=== PATIENT | female | born 1995 | race Caucasian/White ===

== ENCOUNTER 2020-03-15 08:52 | Outpatient (CLI) | payer OTHER ==
[~2020-03-15] VITALS: Ht 157.5 cm; Wt 81.8 kg
--- NOTE | 2020-03-15 08:50 | NUR ---
G1 37.[address] Houston ambulatory to LR 4 for complaint of possible SROM. Reports having felt "a trickle" at 0130 and then again at 0530. Feels "wet" off and on but not filling a pad. Reports good movement and denies contractions or vaginal bleeding. Assisted into gown and placed on EFM. Difficulty tracing FHR, RN frequently adjusting EFM. Amnitest negative, SVE C/Th/H, vagina dry, BOWI and presenting part ballotable. Dr. Houston updated, see physician notification.
[~2020-03-15 08:52] MED LIST: NO HOME MEDICATIONS
[2020-03-15 09:14] VITALS: BP 129/75; PULSE 82; TEMP 98.6
[2020-03-15] MEDS ORDERED: NATURAL IRON65 MG (09:22)
[2020-03-15] MEDS ORDERED: PRENATAL (09:22)
[2020-03-15 09:30] VITALS: BP 119/74; PULSE 83; TEMP 98.6
--- NOTE | 2020-03-15 10:19 | NUR ---
Patient off EFM and discharge instructions reviewed. Denies questions. 1028-Patient ambulatory off unit.
== END 2020-03-15 10:28 | disposition home or self-care (01) ==
LOC: LDRO 08:52
DX: Z34.90 Encounter for supervision of normal pregnancy, unspecified, unspecified trimester (principal)

== ENCOUNTER 2020-03-21 20:05 | Outpatient (CLI) | payer OTHER ==
[~2020-03-21] VITALS: Ht 157.5 cm; Wt 81.8 kg
[~2020-03-21 20:05] MED LIST changes: +NATURAL IRON65 MG; +PRENATAL
[2020-03-21 20:30] VITALS: BP 125/83; PULSE 75; TEMP 98.3
--- NOTE | 2020-03-21 20:30 | NUR ---
2030 G1LO 38.2 WEEK GEST OT LR4 WITH C/O BACKPAIN FOR LAST FEW HOURS WITH SOME PAIN WORSE THAN OTHERS AND TIGHTENING IN HER UTERUS. WAS SEEN IN DRS OFFICE ON THURSDAY AND CERVICAL EXAM SHOWED A CLOSED CERVIX. EFM ON. SVE CLOSED/THICK/HIGH. ADM ASSESSMENT DONE. NO CONTRACTIONS NOTED ON EFM.
[2020-03-21 20:31] VITALS: BP 125/83; PULSE 75; TEMP 98.3
--- NOTE | 2020-03-21 21:00 | NUR ---
2100 BABY VERY ACTIVE. STATES HAS ONLY FELT TWO BACK PAINS WHILE HERE. DR RODGERS NOTIFIED AND REPORT GIVEN. MAY GO HOME 2114 HOME WITH INSTRUCTIONS.
== END 2020-03-21 21:15 | disposition home or self-care (01) ==
LOC: LDR 20:05 → LDRO 20:05
DX: Z34.93 Encounter for supervision of normal pregnancy, unspecified, third trimester (principal); Z3A.38 38 weeks gestation of pregnancy
CPT/HCPCS: OP

== ENCOUNTER → 2020-03-27 | Outpatient (CLI) | payer OTHER | LOC: ZCOL.LAB 09:00 | DX: Z20.828 Contact with and (suspected) exposure to other viral communicable diseases (principal) ==

== ENCOUNTER 2020-04-02 10:15 | Inpatient (IN) | payer OTHER ==
[~2020-04-02] VITALS: Ht 157.5 cm; Wt 83.6 kg
--- NOTE | 2020-04-02 18:45 | NUR ---
Pt arrived on unit ambulatory and escorted by for scheduled induction of labor. Pt reports occasional contractions, denies leaking of fluid or vaginal bleeding and reports normal movement. EFM and toco monitors started. Audible and palpable movement. Vital signs WNL. Plan of care for induction reviewed with pt and at the bedside. Both verbalized an understanding, agreed with the plan and states no questions or concerns at this time. Consents reviewed and signed. IV started and labs obtained per orders. SVE by this RN FT/50/-3. Cytotec given. See EMAR for details.
[2020-04-02 19:04] VITALS: BP 121/75; PULSE 87; TEMP 98.5
[2020-04-02 20:20] LABS: BASO # 0.1 (0.0-0.2); BASO % 0.6 % (0.0-2.0); EOS # 0.2 (0.0-0.7); EOS % 1.5 % (0-4.0); GRAN # 8.9 (1.4-6.5); GRAN % 69.9 % (42.2-75.2); HEMATOCRIT 38.6 % (37.0-47.0); LYMPH # 2.3 (1.2-3.4); LYMPH % 18.4 % (20.0-51.0); MEAN CELL VOLUME 93 fl (80.0-100.0); MEAN CORPUSCULAR HEMOGLOBIN 31 pg (27.0-31.0); MEAN CORPUSCULAR HGB CONC 34 g/dl (33.0-37.0); MEAN PLATELET VOLUME 10.8 fl (7.4-10.4); MONO # 1.1 (0.1-0.6); MONO % 8.5 % (1.7-9.3); PLATELET COUNT 209 K/mm3 (130-400); RED BLOOD COUNT 4.14 M/mm3 (4.10-5.30); REDCELL DISTRIBUTION WIDTH-CV 13.4 % (11.5-14.5)
[2020-04-02 20:45] VITALS: BP 117/73; PULSE 68
[2020-04-02 21:15] VITALS: BP 127/77; PULSE 72
[2020-04-02 21:45] VITALS: BP 117/69; PULSE 71
[2020-04-02 23:15] VITALS: BP 119/80; PULSE 74
[2020-04-03] VITALS (68 sets, daily range): BP systolic 100–172; BP diastolic 56–102; PULSE 62–120; TEMP 97.8–98.3
--- NOTE | 2020-04-03 07:10 | NUR ---
Provider on unit for AROM. Reviews FHR strip. Continue expectant management of labor.
--- NOTE | 2020-04-03 11:02 | NUR ---
Pt up to bathroom to void. 1109-back to monitors to EOB for epidural placement. Difficulty tracing FHR due to maternal position. RN at bedside adjusting monitor. FHR audible.
--- NOTE | 2020-04-03 11:49 | NUR ---
SVE per this RN /-2. Copious amounts of clear fluid noted. Difficulty tracing FHR. RN at bedside adjusting monitors. Pt repositioned RL with PB.
--- NOTE | 2020-04-03 16:50 | NUR ---
Pt repositioned for LL side stirups to RL peanut ball- runners position. FHR noted in the 90s after repositioning. SVE per this RN /-1 with bloody show. FHR not returning to baseline and staying in the 90s-100s for approximately 5 minutes. Pitocin shut off at 1654. LR bolus infusing. O2 applied via simple mask at 10L. Pt repositioned to . FSE applied. Difficulty staying in place. EFM reapplied. FHR returns to 125. Pt repositioned LL. 1655-Dr. Houston notified of FHR declined to 90s and maneuvers. Provider on phone while FHR returns to baseline. Orders to continue expectant management of labor. Call with repeat FHR event or other concerns. Otherwise will be on unit after clinic.
--- NOTE | 2020-04-03 18:12 | NUR ---
1811- BEDSIDE SHIFT REPORT RECEIVED, CARE ASSUMED. DR WAHL AT BEDSIDE TO ASSESS PT. 1812- SVE BY DR WAHL WITH NO CHANGE. DR WAHL DISCUSSES PLAN OF CARE INCLUDING CONTINUING TO LABOR AND POSSIBILITY OF . RISKS AND BENEFITS OF BOTH DISCUSSED. PT AND HER STATE THEY WOULD LIKE TO PROCEED WITH . DR WAHL DISCUSSES WHAT TO EXPECT AND ANSWERS QUESTIONS. 1814- DECISION FOR , PITOCIN TURNED OFF. 1824- [employer] ATHLETE HERE TO DOSE EPIDURAL FOR . 1830- ABDOMINAL SCRUB PERFORMED FOR . 1842- PT OFF MONITORS FOR TRANSFER TO OR FOR . SEE OPERATIVE NOTES.
--- NOTE | 2020-04-03 22:45 | NUR ---
2245- PERICARE WITH CLEAN PAD PROVIDED. PT STATES SHE FEELS LIKE SHE COULD USE THE BATHROOM. VANG CHECKED. DRAINING MINIMAL AMOUNT OF DARKER URINE. TUBING ADJUSTED AND FLUSHED WITH MINIMAL RESULTS. FUNDUS FIRM AND NOT DISPLACED TO SIDE. BLADDER NOT PALPABLE AT THIS TIME. PT WANTS TO TRY GETTING UP TO BATHROOM AND GETTING CATHETER OUT. 2255- SCD'S REMOVED. PT ASSISTED TO SIT ON EDGE OF BED. PT FEELS DIZZY AND LIGHTHEADED SITTING ON EDGE OF BED. NURSE STANDS BY BED. AFTER A COUPLE MINUTES PT IS STILL DIZZY AND NOW HAS RINGING IN EARS. PT ASSISTED BACK TO BED AND POSITIONED FOR COMFORT, COOL CLOTH PROVIDED. 2305- BP 87/62, PULSE 95. PT STILL DIZZY. 2310- PT FEELING BETTER AT THIS TIME. APPLE JUICE PROVIDED. CATHETER CHECKED AND STILL DRAINING MINIMAL AMOUNTS OF URINE. PT ENCOURAGED TO DRINK MORE WATER TO TRY TO FLUSH THE LINE AND NURSE WILL REASSESS LATER.
[2020-04-04 01:25] VITALS: BP 91/61; PULSE 100; TEMP 97.8
[2020-04-04 04:45] VITALS: BP 82/51; PULSE 117
--- NOTE | 2020-04-04 06:57 | NUR ---
0657- DR WAHL UPDATED ON PT VITAL SIGNS, INADEQUATE URINE OUTPUT, VANG CATHETER STILL IN PLACE, AND LR INFUSING. STATES TO KEEP VANG TIL URINE OUTPUT IS ADEQUATE AND CONTINUE TO MONITOR.
[2020-04-04 07:00] VITALS: BP 104/54; PULSE 79; TEMP 97.7
--- NOTE | 2020-04-04 08:46 | NUR ---
Initial visit; Family thanked Inside [employer] for offering congratulations and God's blessings for the of their son. Inside [employer]cker thanked family for choosing [place].
[2020-04-04 17:00] VITALS: BP 106/62; PULSE 91; TEMP 98.3
[2020-04-04] MEDS ORDERED: PERCOCET 325 MG1 TA2 PO (19:32)
[2020-04-04] MEDS ORDERED: MOTRIN 800800 MG/TAB PO (19:32)
[2020-04-04 20:00] VITALS: BP 111/60; PULSE 107; TEMP 98.6
[2020-04-05 07:24] VITALS: BP 105/58; PULSE 83; TEMP 98.4
--- NOTE | 2020-04-05 08:59 | NUR ---
Initial visit; Parents thanked T[employer] for looking in on them and offering congratulations and God's blessings for the of their daughter. Tube Fitter thanked family for choosing [place].
[2020-04-05 16:35] VITALS: BP 116/62; PULSE 91; TEMP 99.1
--- NOTE | 2020-04-05 18:45 | NUR ---
Pt ready to discharge home. Discharge insturctions given to pt and who verbalize their understanding. bands cut. 1899: Pt ambulatory off unit and home with infant and . Escorted out by [employer] surgical instrument maker
== END 2020-04-05 19:00 | disposition home or self-care (01) | DRG 787 ==
LOC: OB 10:15 → LDR 18:34 → OB 18:34
PROVIDERS: ADMIT Obstetrics & Gynecology
PROC: 10D00Z1 Extraction of Products of Conception, Low, Open Approach (ICD-10-PCS; principal; 2020-04-02)
DX: O62.0 Primary inadequate contractions (principal); O99.354 Diseases of the nervous system complicating childbirth; G43.909 Migraine, unspecified, not intractable, without status migrainosus; O99.344 Other mental disorders complicating childbirth; F41.9 Anxiety disorder, unspecified; O69.81X0 Labor and delivery complicated by cord around neck, without compression, not applicable or unspecified; Z37.0 Single live birth; O99.02 Anemia complicating childbirth; D64.9 Anemia, unspecified; Z3A.40 40 weeks gestation of pregnancy
CPT/HCPCS: J1580; J1885; J2175; J2370; J2400; J2405; J2550; J2590; J2791; J2795; J3010; J7120

== ENCOUNTER → 2020-04-10 | Outpatient (CLI) | payer OTHER ==
[~2020-04-10] MED LIST changes: +CEPHALEXIN500 M1 PO; +MOTRIN 800800 MG/TAB PO; +PERCOCET 325 MG1 TA2 PO
--- NOTE | 2020-04-10 15:06 | NUR ---
Pt, Carissa Mena, presents for outpatient consult with one week old baby boy, Ellis Mena, for a evaluation. Ellis was born by c/section on [birth year] and weighed 8#9.6oz (3900 gms). He had some formula supplement at 3 days of age and then pt's milk increase the next day. Pt continued to pump and give him a little EBM for the next two days as it was available. Ellis was seen yesterday at Dr. Rosado's office and his weight is reported by pt to be 8#0oz. He did not get any supplement between then and this consult. Today Ellis weighs 8# 0.4oz (3642 gms). Pt is advised on compression of areola to get a little deeper latch. Ellis isn't opening widely at this moment but pt does well. After his initial feeding on the right breast he had a weight gain of 0.9oz (24 gms). He is placed back to the right breast and bring his total from the right side to 1.3oz (34 gms). He then nurses the left breast and has a gain of 0.2oz (8gms), for a total of 1.5oz (42 gms). LC provides handouts and discusses 3-step feeding plan and increasing milk supply. POC: 3-step feeding plan, supplement 1oz EBM or formula p , pump p each feeding, power pump x1 per day. F/U: One week with this LC. Questions invited and answered.
== END ==
LOC: OLC 14:41
DX: Z39.1 Encounter for care and examination of lactating mother (principal); Z71.89 Other specified counseling

== ENCOUNTER → 2020-04-17 | Outpatient (CLI) | payer OTHER ==
--- NOTE | 2020-04-17 13:11 | NUR ---
Pt, Carissa Mena, presents for follow up consult with two week old baby boy, Ellis Mena. They were seen last week for low weight gain and to evaluate latch. Ellis was born on [birth year] by c/section and weighed 8#9.6oz (3901 gms). Last week he weighed 8#0.4oz (3640 gms). Pt was advised on the 3-step feeding plan with breast/supplement/pumping. She reports Ellis nurses 10 times per day, she supplements 1-2 of EBM and formula each feeding, and follow this with pumping where she collects just under an ounce per session. Today Ellis weighs 8#8.4oz (3868 gms). Pt handles his latch and feeding well. After nursing Ellis had a weight gain of 1.4oz (38 gms), just a little less than last week. Pt's recovery has been complicated by an infection and dehissence of the incision. She is finishing a course of Keflex. She feels her milk supply is lower since this occured. She just started herbal supplements two days ago. POC: Continue and supplementing each feeding. Pump as she has the energy and time. Monitor milk supply as she heals. F/U: Pending pt's feeling of milk supply and desire to evaluate transfer. Questions invited and answered.
== END ==
LOC: LAC 12:53
DX: Z39.1 Encounter for care and examination of lactating mother (principal); Z71.89 Other specified counseling

== ENCOUNTER → 2020-08-02 | Outpatient (REF) | LOC: WSOH 15:10 | DX: Z02.89 Encounter for other administrative examinations (principal) ==

== ENCOUNTER 2021-05-10 05:15 | Inpatient (IN) | payer BC, OTHER ==
[~2021-05-10] VITALS: Ht 157.5 cm; Wt 87.3 kg
[2021-05-10] VITALS (18 sets, daily range): BP systolic 90–119; BP diastolic 50–85; PULSE 58–79; TEMP 97.9–98.7
[2021-05-10 06:50] LABS: BASO # 0.1 K/mm3 (0.0-0.2); BASO % 0.5 % (0.0-2.0); EOS # 0.2 K/mm3 (0.0-0.7); EOS % 1.8 % (0-4.0); GRAN # 9.6 K/mm3 (1.4-6.5); GRAN % 75.1 % (42.2-75.2); HEMOGLOBIN 12.6 g/dl (12.5-16.0); LYMPH # 1.9 K/mm3 (1.2-3.4); MEAN CELL VOLUME 93 fl (80.0-100.0); MEAN CORPUSCULAR HEMOGLOBIN 31 pg (27.0-31.0); MEAN CORPUSCULAR HGB CONC 33 g/dl (33.0-37.0); MEAN PLATELET VOLUME 10.3 fl (7.4-10.4); MONO # 0.9 K/mm3 (0.1-0.6); MONO % 6.7 % (1.7-9.3); PLATELET COUNT 203 K/mm3 (130-400); RED BLOOD COUNT 4.11 M/mm3 (4.10-5.30); REDCELL DISTRIBUTION WIDTH-CV 13.5 % (11.5-14.5)
[2021-05-11 01:00] VITALS: BP 99/66; PULSE 64; TEMP 97.7
[2021-05-11 05:00] VITALS: BP 110/64; PULSE 75; TEMP 98
[2021-05-11 08:30] VITALS: BP 109/75; PULSE 90; TEMP 97.9
[2021-05-11 19:45] VITALS: BP 113/71; PULSE 71; TEMP 98
[2021-05-12 09:00] VITALS: BP 97/66; PULSE 89; TEMP 97.9
[2021-05-12] MEDS ORDERED: IBU800 M1 PO (10:48)
[2021-05-12] MEDS ORDERED: PERCOCET 325 MG1 TA2 PO (10:48)
[2021-05-12] MEDS ORDERED: LEXAPRO 10MG10 MG PO (11:12)
--- NOTE | 2021-05-12 13:00 | NUR ---
Discharge instructions and follow up care reviewed with pt and at the bedside. Both verbalized an understanding, agreed with the plan and states no questions or concerns at this time.
== END 2021-05-12 13:47 | disposition home or self-care (01) | DRG 787 ==
LOC: OB 05:15
PROVIDERS: ADMIT Obstetrics & Gynecology
PROC: 10D00Z1 Extraction of Products of Conception, Low, Open Approach (ICD-10-PCS; principal; 2021-05-10)
DX: O34.211 Maternal care for low transverse scar from previous cesarean delivery (principal); O99.354 Diseases of the nervous system complicating childbirth; G43.909 Migraine, unspecified, not intractable, without status migrainosus; O99.284 Endocrine, nutritional and metabolic diseases complicating childbirth; E28.2 Polycystic ovarian syndrome; O99.343 Other mental disorders complicating pregnancy, third trimester; F41.9 Anxiety disorder, unspecified; O99.213 Obesity complicating pregnancy, third trimester; Z3A.39 39 weeks gestation of pregnancy; Z37.0 Single live birth
CPT/HCPCS: J2405; J2791; J7120

== ENCOUNTER 2023-10-09 05:26 | Inpatient (IN) | payer BC, OTHER ==
[~2023-10-09] VITALS: Ht 154.9 cm; Wt 86.4 kg
[2023-10-09] VITALS (18 sets, daily range): BP systolic 95–120; BP diastolic 20–85; PULSE 66–95; TEMP 98.2–98.8
[~2023-10-09 05:26] MED LIST changes: +IBU800 M1 PO; +LEXAPRO 10MG10 MG PO
[2023-10-09] MEDS ORDERED: VALTREX 50500 MG/TAB (07:00)
[2023-10-09] MEDS ORDERED: Ondansetron 4 MG/2 ML VIAL ONE (07:16)
[2023-10-09] MEDS ORDERED: NS 20 ML IV ONE (07:16)
[2023-10-09] MEDS ORDERED: Oxytocin 10 UNITS/ML VIAL ONE (07:16)
[2023-10-09] MEDS ORDERED: dexAMETHasone 10 MG/ML VIAL ONE (07:21)
[2023-10-09] MEDS ORDERED: Meperidine 50 MG/ML 1 ML VIAL ONE (07:22)
[2023-10-09] MEDS ORDERED: Ketorolac 60 MG/2 ML VIAL IM ONE (07:22)
[2023-10-09] MEDS ORDERED: LR 1,000 ML IV SCH (07:30)
[2023-10-09 07:36] LABS: HEMOGLOBIN 12.8 g/dl (12.5-16.0); MEAN CELL VOLUME 94 fl (80.0-100.0); MEAN CORPUSCULAR HEMOGLOBIN 32 pg (27-31); MEAN CORPUSCULAR HGB CONC 34 g/dl (33.0-37.0); MEAN PLATELET VOLUME 10.5 fl (7.4-10.4); PLATELET COUNT 215 K/mm3 (130-400); RED BLOOD COUNT 4.06 M/mm3 (4.10-5.30)
[2023-10-09] MEDS ORDERED: LR 1,000 ML IV ONE (08:01)
[2023-10-09 08:06] LABS: BAND 4 % (0-10); LYMPHOCYTE 16 % (20.0-51.0); NEUTROPHILS 72 % (42.0-75.2); PLATELET ESTIMATE NORMAL (NORMAL)
[2023-10-09] MEDS ORDERED: Magnes Hydrox (MOM) 80 MG/ML 30 ML CUP PO PRN (08:45)
[2023-10-09] MEDS ORDERED: Loratadine 10 MG TAB PO PRN (08:45)
[2023-10-09] MEDS ORDERED: LR 1,000 ML IV PRN (09:15)
[2023-10-09] MEDS ORDERED: Naloxone 0.4 MG/ML VIAL IV PRN (09:15)
[2023-10-09] MEDS ORDERED: Ondansetron 4 MG/2 ML VIAL IV PRN (09:15)
[2023-10-09] MEDS ORDERED: oxyCODONE/Acetaminophen 5-325 MG TAB PO PRN (09:15)
[2023-10-09] MEDS ORDERED: Measles/Mumps/Rubella Virus Vaccine Live w Diluent 0.5 ML VIAL SQ SCH (09:15)
[2023-10-09] MEDS ORDERED: Ibuprofen 800 MG TAB PO SCH (14:44)
[2023-10-09] MEDS ORDERED: Sennosides/Docusate 8.6-50 MG TAB PO SCH (17:00)
[2023-10-09] MEDS ORDERED: Rho(D) Imm Globulin 1,500 UNITS (300 MCG)/2 ML SYRINGE IV\\IM SCH (18:30)
[2023-10-09] MEDS ORDERED: traZODone 50 MG TAB PO PRN (21:00)
[2023-10-10 06:05] VITALS: BP 99/61; PULSE 71; TEMP 97.9
[2023-10-10 08:48] VITALS: BP 96/58; PULSE 67; TEMP 98.8
[2023-10-10 16:23] VITALS: BP 100/59; PULSE 79; TEMP 98.2
[2023-10-10 20:00] VITALS: BP 109/74; PULSE 70; TEMP 98.2
[2023-10-11 07:59] VITALS: BP 111/72; PULSE 69; TEMP 98
== END 2023-10-11 10:04 | disposition home or self-care (01) | DRG 787 ==
LOC: OB 05:26
PROVIDERS: ADMIT Obstetrics & Gynecology
PROC: 10D00Z1 Extraction of Products of Conception, Low, Open Approach (ICD-10-PCS; principal; 2023-10-09)
DX: O34.211 Maternal care for low transverse scar from previous cesarean delivery (principal); O98.32 Other infections with a predominantly sexual mode of transmission complicating childbirth; A60.09 Herpesviral infection of other urogenital tract; O99.214 Obesity complicating childbirth; O26.893 Other specified pregnancy related conditions, third trimester; Z3A.39 39 weeks gestation of pregnancy; Z37.0 Single live birth
CPT/HCPCS: J0690; J1100; J1885; J2175; J2405; J2590; J2791; J7120